=== PATIENT | female | born 1995 | race Caucasian/White ===

== ENCOUNTER 2024-06-09 11:14 | Emergency (ER) | payer BC ==
[~2024-06-09] VITALS: Ht 180.3 cm; Wt 104.5 kg
[2024-06-09 12:48] LABS: BASO % 0.2 % (0.0-1.0); EOS % 0.4 % (0.0-3.0); HEMATOCRIT 43.9 % (36.0-47.0); HEMOGLOBIN 14.7 g/dl (12.0-15.5); LYMPH # 1.3 10^3/uL (1.5-5.0); MEAN CORPUSCULAR HEMOGLOBIN 29.5 pg (27.0-33.0); MEAN CORPUSCULAR HGB CONC 33.5 g/dl (32.0-36.5); MONO # 0.5 10^3/uL (0.0-0.8); MONO % 9.3 % (2.0-8.0); NEUTROPHILS # 3.2 10^3/uL (1.5-8.5); NEUTROPHILS % 63.9 % (36.0-66.0); PLATELET COUNT, AUTOMATED 204 10^3/uL (150-450); RED BLOOD COUNT 4.99 10^6/uL (4.00-5.40)
[2024-06-09 13:12] LABS: LIPASE 27 U/L (12-53)
[2024-06-09 13:15] LABS: ALBUMIN 4.6 G/DL (3.2-5.2); ALKALINE PHOSPHATASE 97 U/L (35-104); ALT/SGPT 16 U/L (7.0-40); AST/SGOT 22 U/L (<34); BILIRUBIN,DIRECT 0.2 MG/DL (<0.4); BILIRUBIN,TOTAL 0.8 MG/DL (0.3-1.2); TOTAL PROTEIN 8.2 G/DL (5.7-8.2)
[2024-06-09] MEDS ORDERED: ISOVUE-370 76% 100ML VIAL As Ordered ONE (13:16)
[2024-06-09] MEDS: KETOROLAC 30 MG/ML 1ML VIAL IV ONE (15:09)
[2024-06-09 15:10] LABS: HCG, SERUM QUALITATIVE NEGATIVE (NEGATIVE)
[2024-06-09 15:32] LABS: KETONE, URINE AUTO RFX NEGATIVE (NEGATIVE); MUCUS, URINE RFX SMALL (NEGATIVE)
[2024-06-09 15:34] LABS: LEUKOCYTE ESTERASE UR AUTO RFX 2+ (NEGATIVE)
[2024-06-09] MEDS ORDERED: MACR100C43 PO (15:47)
[2024-06-09 15:55] VITALS: BP 125/76; TEMP 99.7; O2SAT 96
== END 2024-06-09 16:10 | disposition home or self-care (01) ==
LOC: M ED 11:14
DX: N39.0 Urinary tract infection, site not specified (principal); I88.0 Nonspecific mesenteric lymphadenitis; J12.3 Human metapneumovirus pneumonia; K38.1 Appendicular concretions; Z79.899 Other long term (current) drug therapy
CPT/HCPCS: 74177; 80047; 80076; 81001; 83690; 84703; 85025; 87086; 87486; 87581; 87633; 87798; 96374; 99284; J1885; Q9967